=== PATIENT | female | born 1950 | race Caucasian/White ===

== ENCOUNTER 2016-06-22 17:28 | Outpatient (CLI) | payer OTHER ==
--- NOTE | 2016-06-22 18:38 | Diagnostic Imaging Report ---
[facility] [address] [facility].[address] [address] Report Submission Date: Jun 22, 2016 6:28:22 PM CDT Patient Study Name: RHONDA CARRANZA Date: Jun 22, 2016 5:41:15 PM CDT Modality Type: CR Gender: F Description: SPINE : 54 Institution: [facility] Physician: RANDAL BURTON - HUNTER Thoracic spine 2 views Date of Exam: June 22, 2016. History: PT STATES PAIN AFTER LIFTING INJURY ON 06/17/16. PAIN MID RIBS AND BACK. HAS HISTORY OF OSTEOPOROSIS (Hx) / PAIN (DICOM Hx) / PAIN (Pt comments) Findings: The bones are diffusely osteopenic. There is mild multilevel degenerative thoracic spondylosis. No compression deformity or subluxation is identified. The cervicothoracic junction is normal. Sternal surgical wires and mediastinal clips are manifestations of prior cardiac surgery. Impression: Multilevel degenerative thoracic spondylosis and bony osteopenia without evidence of compression deformity or subluxation. Electronically signed on Jun 22, 2016 6:28:22 PM CDT by: Loren DISLA
--- NOTE | 2016-06-22 18:39 | Diagnostic Imaging Report ---
[facility] [address] [facility] [address] [place], [place]. [address] Report Submission Date: Jun 22, 2016 6:30:31 PM CDT Patient Study Name: RHONDA CARRANZA Date: Jun 22, 2016 5:35:05 PM CDT Modality Type: CR Gender: F Description: CHEST : 54 Institution: [facility] Physician: RANDAL BURTON - HUNTER Right ribs Date of Exam: June 22, 2016. History: PT STATES PAIN AFTER LIFTING INJURY ON 06/17/16. PAIN MID RIBS AND BACK. HAS HISTORY OF OSTEOPOROSIS (Hx) / PAIN (DICOM Hx) / PAIN (Pt comments) Findings: No discrete right rib fracture is identified. There are degenerative changes of the right shoulder. Cardiomegaly and pulmonary vascular congestion is evident. Impression: No evidence of right rib fracture. Electronically signed on Jun 22, 2016 6:30:31 PM CDT by: Loren DISLA
== END 2016-06-22 17:34 | disposition home or self-care (01) ==
LOC: RAD 17:28
PROVIDERS: ATTEND Family Medicine
DX: M54.6 Pain in thoracic spine (principal)
CPT/HCPCS: 71100; 72072

== ENCOUNTER 2016-12-16 11:58 | Outpatient (CLI) | payer OTHER ==
[2016-12-16] MEDS ORDERED: SALINE FLUSH 10 ML DISP.SYRIN IVF ONE (12:00)
[2016-12-16] MEDS ORDERED: NORMAL SALINE 500 ML IV.SOLN IV ONE (12:00)
== END 2016-12-16 12:00 ==
LOC: INF 11:58
PROVIDERS: ATTEND Family Medicine
DX: R19.7 Diarrhea, unspecified (principal)
CPT/HCPCS: 96360; J7060; S1016